=== PATIENT | female | born 1965 | race Caucasian/White ===

== ENCOUNTER 2017-06-26 03:29 | Emergency (ER) | payer OTHER ==
[~2017-06-26] VITALS: Ht 162.6 cm; Wt 64.1 kg
[~2017-06-26 03:29] MED LIST: DESYREL100 MG PO; LORATADINE10 M2 PO; PAXIL20 MG PO; TRAZODONE HCL100 MG PO; XANAX0.5 MG PO
[2017-06-26] MEDS ORDERED: ATIVAN1 MG PO (05:47)
[2017-06-26 05:54] VITALS: BP 140/94
== END 2017-06-26 05:58 | disposition home or self-care (01) ==
LOC: EME 03:29
DX: F41.9 Anxiety disorder, unspecified (principal); S60.211A Contusion of right wrist, initial encounter; W19.XXXA Unspecified fall, initial encounter; Z59.0 Homelessness; F17.200 Nicotine dependence, unspecified, uncomplicated
CPT/HCPCS: 73110; 90839; 99281; 99284